=== PATIENT | male | born 1975 | race African-American/Black ===

== ENCOUNTER 2017-11-02 21:16 | Emergency (ER) | payer SELFPAY ==
[~2017-11-02] VITALS: Ht 172.7 cm; Wt 68.0 kg
[2017-11-02 21:40] VITALS: Ht 172.7 cm; Wt 68.0 kg
[2017-11-02 22:43] LABS: BASOPHIL % 0.3 % (0-2)
[2017-11-02 22:48] LABS: PLATELET COUNT 473 x10^3mcL (130-400); RED CELL DISTRIBUTION WIDTH 18.3 % (11.5-14.5)
[2017-11-02 22:51] LABS: microscopic required? NO
[2017-11-02 22:58] LABS: UA SPECIFIC GRAVITY <=1.005 (1.005-1.035); urine erythrocyte NEGATIVE (NEGATIVE)
[2017-11-02 23:02] LABS: CALCIUM 8.5 mg/dL (8.5-10.1); CARBON DIOXIDE 28.4 mmol/L (21-32); CHLORIDE SERUM 97 mmol/L (98-107); CREATININE SERUM 0.7 mg/dL (0.7-1.3); GFR1 > 60 mL/min; GLUCOSE SERUM 106 mg/dL (74-106); POTASSIUM SERUM 3.8 mmol/L (3.5-5.1); SODIUM SERUM 136 mmol/L (136-145)
[2017-11-02 23:14] LABS: AMPHETAMINE QUAL UR NONE DETECTED (NEG <=1000)
[2017-11-02 23:14] LABS: ALBUMIN 3.4 g/dL (3.4-5.0); ALKALINE PHOSPHATASE 141 U/L (46-116); ALT/SGPT 17 U/L (16-63); AMYLASE 32 U/L (25-115); AST/SGOT 14 U/L (15-37); BILIRUBIN TOTAL 0.2 mg/dL (0.20-1.00); CHOLESTEROL 186 mg/dL (<200); HDL CHOLESTEROL 52 mg/dL (40-60); LIPASE 110 IU/L (73-393); MAGNESIUM 2.1 mg/dL (1.8-2.4); T4(THYROXINE) 6.2 ug/dL (4.7-13.3); TOTAL PROTEIN, SERUM 8.1 g/dL (6.4-8.2)
[2017-11-03 01:19] LABS: PHOSPHOROUS 3.3 mg/dL (2.5-4.9)
[2017-11-03 01:20] LABS: CHOLESTEROL/HDL RATIO 3.6
[2017-11-03 04:26] LABS: BASOPHIL % 0.3 % (0-2)
[2017-11-03 04:32] LABS: PLATELET COUNT 486 x10^3mcL (130-400); RED CELL DISTRIBUTION WIDTH 17.8 % (11.5-14.5)
[2017-11-03 04:41] LABS: CARBON DIOXIDE 23.6 mmol/L (21-32); CHLORIDE SERUM 102 mmol/L (98-107); POTASSIUM SERUM 3.6 mmol/L (3.5-5.1); SODIUM SERUM 137 mmol/L (136-145)
[2017-11-03 04:42] LABS: CALCIUM 8.5 mg/dL (8.5-10.1); CREATININE SERUM 0.6 mg/dL (0.7-1.3); GFR1 > 60 mL/min; GLUCOSE SERUM 105 mg/dL (74-106); MAGNESIUM 1.9 mg/dL (1.8-2.4); PHOSPHOROUS 3.7 mg/dL (2.5-4.9)
[2017-11-03 11:07] VITALS: BP 125/60
== END 2017-11-03 11:07 | disposition home or self-care (01) ==
LOC: ED 21:16
PROVIDERS: Emergency Medicine; Family Medicine
DX: G93.41 Metabolic encephalopathy (principal); F12.90 Cannabis use, unspecified, uncomplicated; R74.0 Nonspecific elevation of levels of transaminase and lactic acid dehydrogenase [LDH]; G40.909 Epilepsy, unspecified, not intractable, without status epilepticus
CPT/HCPCS: 36415; 36600; 82962; 83880; G0480; J3411; J3475; J3490; J7030; Q0092